=== PATIENT | female | born 1965 | race Caucasian/White ===

== ENCOUNTER 2018-12-24 10:34 | Inpatient (IN) | payer OTHER ==
[2018-12-24] MEDS: IPRATROPIUM (NEB) 0.5 MG/2.5 ML AMP HHN (10:55)
[2018-12-24] MEDS: ALBUTEROL 0.083% (NEB) 2.5 MG/3 ML AMP HHN (10:55)
[2018-12-24] MEDS ORDERED: NITROGLYCERIN (SL) 0.4 MG TAB SL (11:00)
[2018-12-24] MEDS: NITROGLYCERIN 2% 1 GM OINT PKT TD (11:19)
[2018-12-24] MEDS: FUROSEMIDE 40 MG INJ IV (11:19)
[2018-12-24 11:21] LABS: ADD MAN DIFF? NO
[2018-12-24 11:23] LABS: WHITE BLOOD COUNT 20.4 10^3/ul (4.8-10.8)
[2018-12-24 11:23] LABS: BASOPHIL # 0.1 10^3/ul (0.0-0.1); BASOPHILS % 0.4 % (0.0-2.0); EOSINOPHILS # 0.4 10^3/ul (0.0-0.5); HEMATOCRIT 31.3 % (37.0-47.0); HEMOGLOBIN 10.4 g/dl (12.0-16.0); LYMPHOCYTES # 1.7 10^3/ul (0.8-2.9); LYMPHOCYTES % 8.1 % (15.0-51.0); MEAN CORPUSCULAR HEMOGLOBIN 28.6 pg (29.0-33.0); MEAN CORPUSCULAR HGB CONC 33.2 g/dl (32.0-37.0); MEAN PLATELET VOLUME 9.4 fl (7.4-10.4); MONOCYTE # 0.7 10^3/ul (0.3-0.9); MONOCYTES % 3.4 % (0.0-11.0); NEUTROPHIL # 17.4 10^3/ul (1.6-7.5); PLATELET COUNT 344 10^3/UL (140-415); RED BLOOD COUNT 3.64 10^6/ul (4.20-5.40); RED CELL DISTRIBUTION WIDTH 13.7 % (11.5-14.5)
[2018-12-24 11:43] LABS: ANION GAP 7 (5-13); BLOOD UREA NITROGEN 46 mg/dl (7-20); CALCIUM 8.2 mg/dl (8.4-10.2); CARBON DIOXIDE 21 mmol/L (21-31); CHLORIDE 109 mmol/L (97-110); CREATININE 3.48 mg/dl (0.44-1.00); Estimated GFR 14 mL/min (>60); GLUCOSE 237 mg/dl (70-220); INR 0.91; POTASSIUM 3.4 mmol/L (3.5-5.1); PROTIME 12.4 Sec (11.9-14.9); SODIUM 137 mmol/L (135-144)
[2018-12-24 11:44] LABS: PARTIAL THROMBOPLASTIN TIME 26.1 Sec (23.0-35.0)
[2018-12-24 11:54] LABS: TROPONIN-I < 0.012 ng/ml (0.000-0.120)
[2018-12-24] MEDS: ONDANSETRON 4 MG INJ IV (12:03)
[2018-12-24] MEDS ORDERED: VANCOMYCIN IV PER PHARMACY XX (12:30)
[2018-12-24] MEDS ORDERED: ACETAMINOPHEN 325 MG TAB PO (12:30)
[2018-12-24] MEDS: CEFEPIME 2GM/50 ML (PMX) 50 ML IVPB ×2 (12:30→13:00)
[2018-12-24] MEDS ORDERED: ONDANSETRON 4 MG INJ IV ×2 (12:30→17:00)
[2018-12-24] MEDS: VANCOMYCIN 1 GM (PMX) 250 ML IVPB (13:47)
[2018-12-24 13:54] LABS: LACTIC ACID 1.4 mmol/L (0.5-2.0)
[2018-12-24] MEDS: ALBUTEROL/IPRATROPIUM (NEB) 3 ML AMP HHN ×2 (14:43→20:06)
[2018-12-24] MEDS: METHYLPREDNISOLONE 40 MG INJ IV ×2 (15:20→22:41)
[2018-12-24 16:03] LABS: LACTIC ACID 1.5 mmol/L (0.5-2.0)
[2018-12-24] MEDS ORDERED: HYDROCODONE/APAP (5/325) TAB PO (17:00)
[2018-12-24] MEDS ORDERED: NACL 0.9% 3 ML SYG IV (17:00)
[2018-12-24] MEDS: INSULIN ASPART [NOVOLOG] 3 ML PEN SC ×2 (18:58→23:08)
[2018-12-24] MEDS: INSULIN ASP PROT/ASPART (70/30) PEN SC (18:59)
[2018-12-24 20:46] LABS: AADO2 Arterial 131.3 mmHg (7.0-24.0); Allen Test ACCEPTAB; Arterial Base Excess -7.6 mmol/L (-3.0-3); Arterial Blood Gas Oxygen Sat 92.3 mmHG (95.0-98.0); Arterial COHb 0.3 % (0.0-3.0); Arterial Fraction of Oxyhgb 91.7 % (93.0-99.0); Arterial HCO3 17.6 mmol/L (22.0-26.0); Arterial MetHb 0.3 % (0.0-1.5); Arterial pCO2 34.4 mmhg (35-45); MODE NASAL CANNULA; Site Right Radial
[2018-12-24] MEDS: NIFEdipine (XL) 30 MG TAB PO (22:40)
[2018-12-24] MEDS: GABAPENTIN 100 MG CAP PO (22:40)
[2018-12-24] MEDS: HEPARIN 5,000 UNIT/1 ML VIAL SC (22:43)
[2018-12-25] MEDS: ALBUTEROL/IPRATROPIUM (NEB) 3 ML AMP HHN ×4 (01:15→19:56)
[2018-12-25] MEDS: ACCU-CHEK XX (02:00)
[2018-12-25 06:12] LABS: ADD MAN DIFF? NO
[2018-12-25] MEDS: PANTOPRAZOLE (EC) 40 MG TAB PO (06:13)
[2018-12-25] MEDS: METHYLPREDNISOLONE 40 MG INJ IV ×3 (06:13→21:34)
[2018-12-25 06:18] LABS: BASOPHILS % 0.2 % (0.0-2.0); HEMATOCRIT 27.3 % (37.0-47.0); LYMPHOCYTES # 1.3 10^3/ul (0.8-2.9); LYMPHOCYTES % 6.4 % (15.0-51.0); MEAN CORPUSCULAR HEMOGLOBIN 28.3 pg (29.0-33.0); MEAN CORPUSCULAR VOLUME 85.8 fl (82.0-101.0); MEAN PLATELET VOLUME 9.6 fl (7.4-10.4); MONOCYTE # 0.7 10^3/ul (0.3-0.9); MONOCYTES % 3.2 % (0.0-11.0); NEUTROPHIL # 18.3 10^3/ul (1.6-7.5); NEUTROPHILS % 89.2 % (39.0-77.0); PLATELET COUNT 311 10^3/UL (140-415); RED BLOOD COUNT 3.18 10^6/ul (4.20-5.40); RED CELL DISTRIBUTION WIDTH 13.4 % (11.5-14.5)
[2018-12-25 06:18] LABS: WHITE BLOOD COUNT 20.5 10^3/ul (4.8-10.8)
[2018-12-25 06:32] LABS: HEMOGLOBIN A1C 7.6 % (0-5.9)
[2018-12-25 07:07] LABS: ANION GAP 5 (5-13); BLOOD UREA NITROGEN 51 mg/dl (7-20); CALCIUM 7.9 mg/dl (8.4-10.2); CARBON DIOXIDE 21 mmol/L (21-31); CHLORIDE 109 mmol/L (97-110); CREATININE 3.53 mg/dl (0.44-1.00); Estimated GFR 13 mL/min (>60); GLUCOSE 178 mg/dl (70-220); MAGNESIUM 1.8 mg/dl (1.7-2.5); PHOSPHORUS 5.9 mg/dl (2.5-4.9); POTASSIUM 3.6 mmol/L (3.5-5.1); SODIUM 135 mmol/L (135-144)
[2018-12-25] MEDS: INSULIN ASPART [NOVOLOG] 3 ML PEN SC ×4 (07:39→21:44)
[2018-12-25] MEDS: INSULIN ASP PROT/ASPART (70/30) PEN SC ×2 (07:53→17:30)
[2018-12-25 08:08] LABS: AADO2 Arterial 140.1 mmHg (7.0-24.0); Allen Test ACCEPTAB; Arterial Base Excess -8.4 mmol/L (-3.0-3); Arterial Blood Gas Oxygen Sat 89.6 mmHG (95.0-98.0); Arterial COHb 0.3 % (0.0-3.0); Arterial Fraction of Oxyhgb 89.1 % (93.0-99.0); Arterial HCO3 16.6 mmol/L (22.0-26.0); Arterial MetHb 0.3 % (0.0-1.5); Arterial pCO2 32.2 mmhg (35-45); MODE NASAL CANNULA; Site Right Radial
[2018-12-25] MEDS: GABAPENTIN 100 MG CAP PO ×3 (08:39→21:34)
[2018-12-25] MEDS: METOPROLOL (XL) 25 MG TAB PO (08:39)
[2018-12-25] MEDS: morphine 2 MG INJ IV (08:39)
[2018-12-25] MEDS: NIFEdipine (XL) 30 MG TAB PO ×2 (08:39→21:34)
[2018-12-25] MEDS: FOLIC ACID 1 MG TAB PO (08:39)
[2018-12-25] MEDS: HEPARIN 5,000 UNIT/1 ML VIAL SC ×2 (08:52→21:40)
[2018-12-25] MEDS: CEFEPIME 2GM/50 ML (PMX) 50 ML IVPB (12:02)
[2018-12-25] MEDS: ACETAMINOPHEN 325 MG TAB PO (13:34)
[2018-12-25] MEDS: METHADONE 10 MG TAB PO (16:40)
[2018-12-25] MEDS: FUROSEMIDE 20 MG INJ IV (17:34)
[2018-12-26] MEDS: ALBUTEROL/IPRATROPIUM (NEB) 3 ML AMP HHN ×4 (01:12→19:39)
[2018-12-26] MEDS: ACCU-CHEK XX (02:00)
[2018-12-26 02:02] LABS: ADD UMIC YES; UR ASCORBIC ACID NEGATIVE (NEGATIVE); UR BILIRUBIN (Dip) NEGATIVE (NEGATIVE); UR BLOOD (Dip) 2+ mg/dL (NEGATIVE); UR BUDDING YEAST FEW /HPF (NONE SEEN); UR CLARITY CLEAR (CLEAR); UR COLOR YELLOW (YELLOW); UR GLUCOSE (Dip) 3+ mg/dL (NEGATIVE); UR KETONES (Dip) NEGATIVE (NEGATIVE); UR LEUKOCYTE ESTERASE (Dip) NEGATIVE Leu/ul (NEGATIVE); UR MUCUS FEW /HPF (NONE SEEN); UR NITRITE (Dip) NEGATIVE (NEGATIVE); UR RBC 53 /HPF (0-5); UR SPECIFIC GRAVITY (Dip) 1.011 (1.003-1.030); UR SQUAMOUS EPITHELIAL CELL FEW /HPF (FEW); UR TOTAL PROTEIN (Dip) 3+ mg/dl (NEGATIVE); UR UROBILINOGEN (Dip) NEGATIVE (NEGATIVE); UR WBC 4 /HPF (0-5)
[2018-12-26 02:40] LABS: CREATININE,URINE RANDOM 43.32 mg/dl (20-320)
[2018-12-26 02:40] LABS: SODIUM,URINE RANDOM 69 mmol/L (30-90)
[2018-12-26 03:32] LABS: PROTEIN URINE > 600.0 mg/dl (0.0-11.9)
[2018-12-26 03:57] LABS: PROTEIN, TOTAL 5.2 g/dL (6.1-8.1)
[2018-12-26] MEDS: METHYLPREDNISOLONE 40 MG INJ IV ×3 (05:42→21:42)
[2018-12-26] MEDS: FUROSEMIDE 20 MG INJ IV ×2 (05:42→17:38)
[2018-12-26 06:37] LABS: ADD MAN DIFF? NO
[2018-12-26 06:48] LABS: BASOPHILS % 0.2 % (0.0-2.0); HEMATOCRIT 27.1 % (37.0-47.0); HEMOGLOBIN 8.8 g/dl (12.0-16.0); LYMPHOCYTES # 1.3 10^3/ul (0.8-2.9); LYMPHOCYTES % 6.6 % (15.0-51.0); MEAN CORPUSCULAR HEMOGLOBIN 28.4 pg (29.0-33.0); MEAN CORPUSCULAR HGB CONC 32.5 g/dl (32.0-37.0); MEAN CORPUSCULAR VOLUME 87.4 fl (82.0-101.0); MEAN PLATELET VOLUME 9.5 fl (7.4-10.4); MONOCYTE # 0.5 10^3/ul (0.3-0.9); MONOCYTES % 2.6 % (0.0-11.0); NEUTROPHIL # 17.7 10^3/ul (1.6-7.5); NEUTROPHILS % 89.2 % (39.0-77.0); PLATELET COUNT 324 10^3/UL (140-415); RED CELL DISTRIBUTION WIDTH 13.7 % (11.5-14.5)
[2018-12-26 06:48] LABS: WHITE BLOOD COUNT 19.9 10^3/ul (4.8-10.8)
[2018-12-26 07:05] LABS: ANION GAP 6 (5-13); BLOOD UREA NITROGEN 58 mg/dl (7-20); CALCIUM 8.1 mg/dl (8.4-10.2); CARBON DIOXIDE 21 mmol/L (21-31); CHLORIDE 108 mmol/L (97-110); CREATININE 3.91 mg/dl (0.44-1.00); Estimated GFR 12 mL/min (>60); GLUCOSE 196 mg/dl (70-220); POTASSIUM 4.1 mmol/L (3.5-5.1); SODIUM 135 mmol/L (135-144)
[2018-12-26 07:06] LABS: MAGNESIUM 1.8 mg/dl (1.7-2.5)
[2018-12-26 07:06] LABS: PHOSPHORUS 6.6 mg/dl (2.5-4.9)
[2018-12-26 07:28] LABS: AADO2 Arterial 612.7 mmHg (7.0-24.0); Allen Test ACCEPTAB; Arterial Base Excess -8.3 mmol/L (-3.0-3); Arterial Blood Gas Oxygen Sat 92.7 mmHG (95.0-98.0); Arterial COHb 0.3 % (0.0-3.0); Arterial Fraction of Oxyhgb 92.1 % (93.0-99.0); Arterial HCO3 16.9 mmol/L (22.0-26.0); Arterial MetHb 0.4 % (0.0-1.5); Arterial pCO2 33.8 mmhg (35-45); MODE HFNC; Site Right Radial
[2018-12-26] MEDS: PANTOPRAZOLE (EC) 40 MG TAB PO (07:56)
[2018-12-26] MEDS: INSULIN ASPART [NOVOLOG] 3 ML PEN SC ×4 (08:11→21:00)
[2018-12-26] MEDS: INSULIN ASP PROT/ASPART (70/30) PEN SC ×2 (08:12→18:07)
[2018-12-26] MEDS: GABAPENTIN 100 MG CAP PO ×3 (08:14→21:42)
[2018-12-26] MEDS: FOLIC ACID 1 MG TAB PO (08:14)
[2018-12-26] MEDS: NIFEdipine (XL) 30 MG TAB PO ×2 (10:16→21:42)
[2018-12-26] MEDS: METOPROLOL (XL) 25 MG TAB PO (10:17)
[2018-12-26] MEDS: HEPARIN 5,000 UNIT/1 ML VIAL SC ×2 (10:18→21:51)
[2018-12-26] MEDS: METHADONE 10 MG TAB PO (10:23)
[2018-12-26] MEDS: CEFEPIME 2GM/50 ML (PMX) 50 ML IVPB (14:06)
[2018-12-26] MEDS: VANCOMYCIN 1.25 GM/NS 250 ML 250 ML IVPB (15:39)
[2018-12-26 15:57] LABS: ALPHA-1-GLOBULINS 0.6 g/dL (0.2-0.3); ALPHA-2-GLOBULINS 1.2 g/dL (0.5-0.9); BETA 2 GLOBULINS 0.4 g/dL (0.2-0.5); BETA GLOBULINS 0.4 g/dL (0.4-0.6); GAMMA GLOBULINS 1.3 g/dL (0.8-1.7)
[2018-12-27] MEDS: ALBUTEROL/IPRATROPIUM (NEB) 3 ML AMP HHN ×4 (01:37→19:47)
[2018-12-27] MEDS: morphine 2 MG INJ IV ×2 (01:55→15:49)
[2018-12-27] MEDS: ACCU-CHEK XX (02:00)
[2018-12-27] MEDS: ACETAMINOPHEN 325 MG TAB PO (04:45)
[2018-12-27] MEDS: METHYLPREDNISOLONE 40 MG INJ IV ×3 (06:28→21:07)
[2018-12-27] MEDS: FUROSEMIDE 20 MG INJ IV ×2 (06:30→17:22)
[2018-12-27 07:21] LABS: ADD MAN DIFF? NO
[2018-12-27 07:25] LABS: AADO2 Arterial 529.5 mmHg (7.0-24.0); Allen Test ACCEPTAB; Arterial Base Excess -8.2 mmol/L (-3.0-3); Arterial Blood Gas Oxygen Sat 94.1 mmHG (95.0-98.0); Arterial COHb 0.3 % (0.0-3.0); Arterial Fraction of Oxyhgb 93.6 % (93.0-99.0); Arterial HCO3 17.7 mmol/L (22.0-26.0); Arterial MetHb 0.2 % (0.0-1.5); Arterial pCO2 37.7 mmhg (35-45); MODE HFNC; Site Right Radial
[2018-12-27 07:29] LABS: WHITE BLOOD COUNT 17.3 10^3/ul (4.8-10.8)
[2018-12-27 07:29] LABS: BASOPHILS % 0.2 % (0.0-2.0); HEMATOCRIT 26.3 % (37.0-47.0); HEMOGLOBIN 8.4 g/dl (12.0-16.0); LYMPHOCYTES # 1.4 10^3/ul (0.8-2.9); MEAN CORPUSCULAR HEMOGLOBIN 27.8 pg (29.0-33.0); MEAN CORPUSCULAR HGB CONC 31.9 g/dl (32.0-37.0); MEAN CORPUSCULAR VOLUME 87.1 fl (82.0-101.0); MEAN PLATELET VOLUME 9.7 fl (7.4-10.4); MONOCYTE # 0.8 10^3/ul (0.3-0.9); MONOCYTES % 4.6 % (0.0-11.0); NEUTROPHIL # 14.8 10^3/ul (1.6-7.5); NEUTROPHILS % 85.5 % (39.0-77.0); PLATELET COUNT 334 10^3/UL (140-415); RED BLOOD COUNT 3.02 10^6/ul (4.20-5.40); RED CELL DISTRIBUTION WIDTH 13.5 % (11.5-14.5)
[2018-12-27 07:47] LABS: ANION GAP 6 (5-13); BLOOD UREA NITROGEN 69 mg/dl (7-20); CALCIUM 7.7 mg/dl (8.4-10.2); CARBON DIOXIDE 20 mmol/L (21-31); CHLORIDE 107 mmol/L (97-110); CREATININE 3.84 mg/dl (0.44-1.00); Estimated GFR 12 mL/min (>60); GLUCOSE 64 mg/dl (70-220); MAGNESIUM 1.8 mg/dl (1.7-2.5); POTASSIUM 4.2 mmol/L (3.5-5.1); SODIUM 133 mmol/L (135-144)
[2018-12-27] MEDS: INSULIN ASPART [NOVOLOG] 3 ML PEN SC ×4 (08:00→20:50)
[2018-12-27] MEDS: INSULIN ASP PROT/ASPART (70/30) PEN SC ×2 (08:00→19:03)
[2018-12-27] MEDS: PANTOPRAZOLE (EC) 40 MG TAB PO (08:40)
[2018-12-27] MEDS: METOPROLOL (XL) 25 MG TAB PO (08:41)
[2018-12-27] MEDS: GABAPENTIN 100 MG CAP PO ×3 (08:41→21:07)
[2018-12-27] MEDS: FOLIC ACID 1 MG TAB PO (08:41)
[2018-12-27] MEDS: METHADONE 10 MG TAB PO (08:42)
[2018-12-27] MEDS: NIFEdipine (XL) 30 MG TAB PO ×2 (08:42→21:07)
[2018-12-27] MEDS: HEPARIN 5,000 UNIT/1 ML VIAL SC ×2 (09:08→21:12)
[2018-12-27 09:27] LABS: HAAIG REFLEX REFLEX FILED
[2018-12-27 12:22] LABS: COMPLEMENT C3 130 mg/dl (88-165); COMPLEMENT C4 22 mg/dl (14-44)
[2018-12-27 12:47] LABS: HEPATITIS B SURFACE ANTIGEN NEGATIVE (NEGATIVE)
[2018-12-27 13:05] LABS: HEPATITIS B CORE ANTIBODY REACTIVE (NEGATIVE)
[2018-12-27 13:21] LABS: HEPATITIS C VIRAL ANTIBODY REACTIVE (NEGATIVE)
[2018-12-27] MEDS: CEFEPIME 2GM/50 ML (PMX) 50 ML IVPB (14:39)
[2018-12-27] MEDS: BUMETANIDE 12 MG in DEXTROSE 5% 72 ML IV (20:44)
[2018-12-27] MEDS: ZOLPIDEM 5 MG TAB PO (21:07)
[2018-12-27 21:59] LABS: RHEUMATOID FACTOR NEGATIVE (NEGATIVE)
[2018-12-28] MEDS: ALBUTEROL/IPRATROPIUM (NEB) 3 ML AMP HHN ×4 (01:45→20:00)
[2018-12-28] MEDS: ACCU-CHEK XX (02:00)
[2018-12-28] MEDS: morphine 2 MG INJ IV ×5 (02:47→22:22)
[2018-12-28] MEDS: FUROSEMIDE 20 MG INJ IV ×2 (06:00→17:28)
[2018-12-28] MEDS: METHYLPREDNISOLONE 40 MG INJ IV ×3 (06:26→22:22)
[2018-12-28 07:39] LABS: AADO2 Arterial 602.8 mmHg (7.0-24.0); Allen Test ACCEPTAB; Arterial Base Excess -9.6 mmol/L (-3.0-3); Arterial Blood Gas Oxygen Sat 93.3 mmHG (95.0-98.0); Arterial COHb 0.3 % (0.0-3.0); Arterial Fraction of Oxyhgb 92.9 % (93.0-99.0); Arterial HCO3 16.7 mmol/L (22.0-26.0); Arterial MetHb 0.1 % (0.0-1.5); Arterial pCO2 37.8 mmhg (35-45); MODE HFNC; Site Right Radial
[2018-12-28] MEDS: INSULIN ASPART [NOVOLOG] 3 ML PEN SC ×4 (07:51→20:14)
[2018-12-28] MEDS: INSULIN ASP PROT/ASPART (70/30) PEN SC ×2 (07:52→17:35)
[2018-12-28] MEDS: GABAPENTIN 100 MG CAP PO ×3 (08:10→22:21)
[2018-12-28] MEDS: METHADONE 10 MG TAB PO (08:11)
[2018-12-28] MEDS: NIFEdipine (XL) 30 MG TAB PO ×2 (08:11→22:22)
[2018-12-28] MEDS: METOPROLOL (XL) 25 MG TAB PO (08:11)
[2018-12-28] MEDS: PANTOPRAZOLE (EC) 40 MG TAB PO (08:11)
[2018-12-28] MEDS: FOLIC ACID 1 MG TAB PO (08:11)
[2018-12-28] MEDS: HEPARIN 5,000 UNIT/1 ML VIAL SC ×2 (09:25→22:40)
[2018-12-28 13:27] LABS: CREATININE, RANDOM URINE 46 mg/dL (20-275); MICROALBUMIN 247.6 mg/dL; MICROALBUMIN/CREATININE RATIO 5383 (<30)
[2018-12-28] MEDS: CEFEPIME 2GM/50 ML (PMX) 50 ML IVPB (14:08)
[2018-12-28 14:17] LABS: ADD MAN DIFF? NO
[2018-12-28 14:19] LABS: WHITE BLOOD COUNT 14.3 10^3/ul (4.8-10.8)
[2018-12-28 14:19] LABS: BASOPHILS % 0.3 % (0.0-2.0); EOSINOPHILS % 0.1 % (0.0-7.0); HEMATOCRIT 26.3 % (37.0-47.0); HEMOGLOBIN 8.7 g/dl (12.0-16.0); LYMPHOCYTES # 1.2 10^3/ul (0.8-2.9); LYMPHOCYTES % 8.2 % (15.0-51.0); MEAN CORPUSCULAR HEMOGLOBIN 28.4 pg (29.0-33.0); MEAN CORPUSCULAR HGB CONC 33.1 g/dl (32.0-37.0); MEAN CORPUSCULAR VOLUME 85.9 fl (82.0-101.0); MEAN PLATELET VOLUME 9.2 fl (7.4-10.4); MONOCYTE # 0.6 10^3/ul (0.3-0.9); MONOCYTES % 4.3 % (0.0-11.0); NEUTROPHIL # 11.8 10^3/ul (1.6-7.5); NEUTROPHILS % 82.1 % (39.0-77.0); PLATELET COUNT 321 10^3/UL (140-415); RED BLOOD COUNT 3.06 10^6/ul (4.20-5.40); RED CELL DISTRIBUTION WIDTH 13.4 % (11.5-14.5)
[2018-12-28 14:40] LABS: ANION GAP 10 (5-13); BLOOD UREA NITROGEN 86 mg/dl (7-20); CALCIUM 7.4 mg/dl (8.4-10.2); CARBON DIOXIDE 18 mmol/L (21-31); CHLORIDE 106 mmol/L (97-110); CREATININE 3.99 mg/dl (0.44-1.00); Estimated GFR 12 mL/min (>60); GLUCOSE 155 mg/dl (70-220); MAGNESIUM 1.8 mg/dl (1.7-2.5); PHOSPHORUS 7.3 mg/dl (2.5-4.9); POTASSIUM 4.2 mmol/L (3.5-5.1); SODIUM 134 mmol/L (135-144)
[2018-12-28 14:44] LABS: VANCOMYCIN,TROUGH 11.2 ug/ml (10.0-20.0)
[2018-12-28 15:46] LABS: MYELOPEROXIDASE ANTIBODY 5.3 AI; PROTEINASE-3 ANTIBODY <1.0 AI
[2018-12-28] MEDS: VANCOMYCIN 1.25 GM/NS 250 ML 250 ML IVPB (15:50)
[2018-12-28 16:37] LABS: CREATININE, RANDOM URINE 43 mg/dL (20-275); PROTEIN/CREATININE RATIO 18535 mg/g creat (21-161)
[2018-12-28 19:12] LABS: TROPONIN-I < 0.012 ng/ml (0.000-0.120)
[2018-12-28 19:46] LABS: ANA SCREEN POSITIVE (NEGATIVE)
[2018-12-28] MEDS ORDERED: HEPARIN 1000 UNITS/ML 10 ML INJ (21:26)
[2018-12-28] MEDS: HEPARIN 5,000 UNIT/1 ML VIAL CATHETER (21:37)
[2018-12-29] MEDS: ACCU-CHEK XX (01:01)
[2018-12-29] MEDS: ALBUTEROL/IPRATROPIUM (NEB) 3 ML AMP HHN ×4 (01:33→19:24)
[2018-12-29 01:47] LABS: TROPONIN-I < 0.012 ng/ml (0.000-0.120)
[2018-12-29] MEDS: DOCUSATE SODIUM 100 MG CAP PO ×2 (04:42→14:44)
[2018-12-29] MEDS: morphine 2 MG INJ IV ×3 (04:42→21:16)
[2018-12-29 05:17] LABS: ADD MAN DIFF? NO
[2018-12-29] MEDS: FUROSEMIDE 20 MG INJ IV ×2 (05:19→17:59)
[2018-12-29] MEDS: METHYLPREDNISOLONE 40 MG INJ IV ×2 (05:19→14:58)
[2018-12-29 05:23] LABS: BASOPHIL # 0.1 10^3/ul (0.0-0.1); BASOPHILS % 0.3 % (0.0-2.0); EOSINOPHILS % 0.1 % (0.0-7.0); HEMATOCRIT 27.1 % (37.0-47.0); LYMPHOCYTES # 1.2 10^3/ul (0.8-2.9); LYMPHOCYTES % 7.4 % (15.0-51.0); MEAN CORPUSCULAR HEMOGLOBIN 28.2 pg (29.0-33.0); MEAN CORPUSCULAR HGB CONC 33.2 g/dl (32.0-37.0); MEAN PLATELET VOLUME 9.5 fl (7.4-10.4); MONOCYTE # 0.5 10^3/ul (0.3-0.9); MONOCYTES % 3.3 % (0.0-11.0); NEUTROPHIL # 14.1 10^3/ul (1.6-7.5); NEUTROPHILS % 84.8 % (39.0-77.0); PLATELET COUNT 260 10^3/UL (140-415); RED BLOOD COUNT 3.19 10^6/ul (4.20-5.40); RED CELL DISTRIBUTION WIDTH 13.2 % (11.5-14.5)
[2018-12-29 05:23] LABS: WHITE BLOOD COUNT 16.6 10^3/ul (4.8-10.8)
[2018-12-29 05:53] LABS: CARBON DIOXIDE 21 mmol/L (21-31); CHLORIDE 106 mmol/L (97-110); POTASSIUM 4.1 mmol/L (3.5-5.1); SODIUM 134 mmol/L (135-144)
[2018-12-29 05:54] LABS: ANION GAP 7 (5-13); BLOOD UREA NITROGEN 84 mg/dl (7-20); CALCIUM 7.5 mg/dl (8.4-10.2); CREATININE 3.52 mg/dl (0.44-1.00); Estimated GFR 13 mL/min (>60); GLUCOSE 208 mg/dl (70-220); MAGNESIUM 1.8 mg/dl (1.7-2.5); PHOSPHORUS 7.2 mg/dl (2.5-4.9)
[2018-12-29 06:03] LABS: TROPONIN-I < 0.012 ng/ml (0.000-0.120)
[2018-12-29] MEDS: PANTOPRAZOLE (EC) 40 MG TAB PO (06:32)
[2018-12-29] MEDS: INSULIN ASP PROT/ASPART (70/30) PEN SC ×2 (07:35→17:53)
[2018-12-29] MEDS: METOPROLOL (XL) 25 MG TAB PO (08:20)
[2018-12-29] MEDS: FOLIC ACID 1 MG TAB PO (08:20)
[2018-12-29] MEDS: NIFEdipine (XL) 30 MG TAB PO ×2 (08:21→21:01)
[2018-12-29] MEDS: GABAPENTIN 100 MG CAP PO ×3 (08:21→21:00)
[2018-12-29] MEDS: HEPARIN 5,000 UNIT/1 ML VIAL SC ×2 (08:23→21:07)
[2018-12-29] MEDS: INSULIN ASPART [NOVOLOG] 3 ML PEN SC ×4 (08:24→20:13)
[2018-12-29 09:04] LABS: Allen Test ACCEPTAB; Arterial Base Excess -8.9 mmol/L (-3.0-3); Arterial Blood Gas Oxygen Sat 92.3 mmHG (95.0-98.0); Arterial COHb 0.3 % (0.0-3.0); Arterial Fraction of Oxyhgb 91.8 % (93.0-99.0); Arterial HCO3 16.2 mmol/L (22.0-26.0); Arterial MetHb 0.2 % (0.0-1.5); Arterial pCO2 32.2 mmhg (35-45); MODE HFNC; Site Right Radial
[2018-12-29] MEDS: METHADONE 10 MG TAB PO (09:34)
[2018-12-29] MEDS: CEFEPIME 2GM/50 ML (PMX) 50 ML IVPB (13:00)
[2018-12-29 14:21] LABS: ANCA SCREEN P-ANCA POS (NEGATIVE)
[2018-12-29] MEDS: HEPARIN 1000 UNITS/ML 10 ML INJ CATHETER (14:59)
[2018-12-29] MEDS ORDERED: GLUCOSE GEL 15 GRAM TUBE PO ×2 (15:00)
[2018-12-29] MEDS ORDERED: GLUCAGON 1 MG INJ IM (15:00)
[2018-12-29] MEDS: LACTULOSE 30ML CUP PO ×2 (15:00→21:01)
[2018-12-29] MEDS ORDERED: GLUCOSE GEL 15 GRAM TUBE BUCCAL (15:00)
[2018-12-29] MEDS ORDERED: DEXTROSE 50% 50 ML SYRINGE IV (15:00)
[2018-12-29] MEDS: NA PHOSPHATE/BIPHOS 133 ML ENEMA PR ×2 (15:34)
[2018-12-29] MEDS: METHYLPREDNISOLONE 125 MG INJ IV (21:11)
[2018-12-30] MEDS: ACCU-CHEK XX (01:00)
[2018-12-30] MEDS: LACTULOSE 30ML CUP PO ×3 (01:22→22:49)
[2018-12-30] MEDS: ALBUTEROL/IPRATROPIUM (NEB) 3 ML AMP HHN ×4 (02:27→19:29)
[2018-12-30] MEDS: morphine 2 MG INJ IV ×3 (03:05→22:59)
[2018-12-30 05:13] LABS: ADD MAN DIFF? NO
[2018-12-30] MEDS: METHYLPREDNISOLONE 125 MG INJ IV ×3 (05:28→22:49)
[2018-12-30] MEDS: PANTOPRAZOLE (EC) 40 MG TAB PO (05:29)
[2018-12-30] MEDS: FUROSEMIDE 20 MG INJ IV ×2 (05:30→18:01)
[2018-12-30 05:33] LABS: WHITE BLOOD COUNT 20.9 10^3/ul (4.8-10.8)
[2018-12-30 05:33] LABS: BASOPHIL # 0.1 10^3/ul (0.0-0.1); BASOPHILS % 0.3 % (0.0-2.0); EOSINOPHILS # 0.1 10^3/ul (0.0-0.5); EOSINOPHILS % 0.6 % (0.0-7.0); HEMATOCRIT 26.3 % (37.0-47.0); HEMOGLOBIN 8.8 g/dl (12.0-16.0); LYMPHOCYTES # 1.6 10^3/ul (0.8-2.9); LYMPHOCYTES % 7.8 % (15.0-51.0); MEAN CORPUSCULAR HEMOGLOBIN 28.2 pg (29.0-33.0); MEAN CORPUSCULAR HGB CONC 33.5 g/dl (32.0-37.0); MEAN CORPUSCULAR VOLUME 84.3 fl (82.0-101.0); MEAN PLATELET VOLUME 9.8 fl (7.4-10.4); MONOCYTE # 0.5 10^3/ul (0.3-0.9); MONOCYTES % 2.5 % (0.0-11.0); NEUTROPHIL # 17.5 10^3/ul (1.6-7.5); PLATELET COUNT 236 10^3/UL (140-415); RED BLOOD COUNT 3.12 10^6/ul (4.20-5.40); RED CELL DISTRIBUTION WIDTH 13.2 % (11.5-14.5)
[2018-12-30 06:00] LABS: ANION GAP 7 (5-13); BLOOD UREA NITROGEN 83 mg/dl (7-20); CALCIUM 7.3 mg/dl (8.4-10.2); CARBON DIOXIDE 22 mmol/L (21-31); CHLORIDE 105 mmol/L (97-110); CREATININE 3.33 mg/dl (0.44-1.00); Estimated GFR 14 mL/min (>60); GLUCOSE 145 mg/dl (70-220); MAGNESIUM 1.8 mg/dl (1.7-2.5); PHOSPHORUS 6.4 mg/dl (2.5-4.9); POTASSIUM 3.9 mmol/L (3.5-5.1); SODIUM 134 mmol/L (135-144)
[2018-12-30] MEDS: INSULIN ASPART [NOVOLOG] 3 ML PEN SC ×4 (07:35→20:44)
[2018-12-30] MEDS: GABAPENTIN 100 MG CAP PO ×3 (08:39→20:38)
[2018-12-30] MEDS: FOLIC ACID 1 MG TAB PO (08:39)
[2018-12-30 08:40] LABS: AADO2 Arterial 469.7 mmHg (7.0-24.0); Allen Test ACCEPTAB; Arterial Base Excess -6.2 mmol/L (-3.0-3); Arterial Blood Gas Oxygen Sat 92.9 mmHG (95.0-98.0); Arterial COHb 0.3 % (0.0-3.0); Arterial Fraction of Oxyhgb 92.1 % (93.0-99.0); Arterial HCO3 18.3 mmol/L (22.0-26.0); Arterial MetHb 0.6 % (0.0-1.5); Arterial pCO2 31.2 mmhg (35-45); MODE HFNC; Site Left Radial
[2018-12-30] MEDS: METHADONE 10 MG TAB PO (08:41)
[2018-12-30] MEDS: HEPARIN 5,000 UNIT/1 ML VIAL SC ×2 (08:43→20:40)
[2018-12-30] MEDS: INSULIN ASP PROT/ASPART (70/30) PEN SC ×2 (08:44→18:05)
[2018-12-30] MEDS: METOPROLOL (XL) 25 MG TAB PO (08:54)
[2018-12-30] MEDS: NIFEdipine (XL) 30 MG TAB PO ×2 (08:54→20:39)
[2018-12-30] MEDS: ALBUMIN HUMAN 25% 100 ML IV (11:49)
[2018-12-30] MEDS: CEFEPIME 2GM/50 ML (PMX) 50 ML IVPB ×2 (12:14→14:54)
[2018-12-30] MEDS: ALTEPLASE (CATHFLO) 2 MG INJ CATHETER (13:34)
[2018-12-31] MEDS: ALBUTEROL/IPRATROPIUM (NEB) 3 ML AMP HHN ×4 (01:09→19:38)
[2018-12-31] MEDS: ACCU-CHEK XX (02:01)
[2018-12-31] MEDS: ZOLPIDEM 5 MG TAB PO (02:18)
[2018-12-31 05:18] LABS: AADO2 Arterial 429.1 mmHg (7.0-24.0); Allen Test ACCEPTAB; Arterial Base Excess -4.3 mmol/L (-3.0-3); Arterial COHb 0.3 % (0.0-3.0); Arterial Fraction of Oxyhgb 96.7 % (93.0-99.0); Arterial HCO3 20.6 mmol/L (22.0-26.0); Arterial MetHb 0 % (0.0-1.5); Arterial pCO2 36.9 mmhg (35-45); MODE HFNC; Site Left Radial
[2018-12-31] MEDS: METHYLPREDNISOLONE 125 MG INJ IV ×3 (05:52→23:26)
[2018-12-31] MEDS: LACTULOSE 30ML CUP PO ×3 (05:53→21:51)
[2018-12-31] MEDS: FUROSEMIDE 20 MG INJ IV ×2 (05:54→17:54)
[2018-12-31 07:57] LABS: ADD MAN DIFF? NO
[2018-12-31 07:59] LABS: WHITE BLOOD COUNT 20.9 10^3/ul (4.8-10.8)
[2018-12-31 07:59] LABS: BASOPHILS % 0.2 % (0.0-2.0); EOSINOPHILS # 0.1 10^3/ul (0.0-0.5); EOSINOPHILS % 0.3 % (0.0-7.0); HEMATOCRIT 25.1 % (37.0-47.0); HEMOGLOBIN 8.5 g/dl (12.0-16.0); LYMPHOCYTES # 1.5 10^3/ul (0.8-2.9); LYMPHOCYTES % 7.4 % (15.0-51.0); MEAN CORPUSCULAR HEMOGLOBIN 28.5 pg (29.0-33.0); MEAN CORPUSCULAR HGB CONC 33.9 g/dl (32.0-37.0); MEAN CORPUSCULAR VOLUME 84.2 fl (82.0-101.0); MEAN PLATELET VOLUME 10.6 fl (7.4-10.4); MONOCYTE # 0.6 10^3/ul (0.3-0.9); NEUTROPHIL # 17.8 10^3/ul (1.6-7.5); NEUTROPHILS % 85.1 % (39.0-77.0); PLATELET COUNT 160 10^3/UL (140-415); RED BLOOD COUNT 2.98 10^6/ul (4.20-5.40); RED CELL DISTRIBUTION WIDTH 12.8 % (11.5-14.5)
[2018-12-31] MEDS: PANTOPRAZOLE (EC) 40 MG TAB PO (08:26)
[2018-12-31] MEDS: GABAPENTIN 100 MG CAP PO ×3 (08:27→23:25)
[2018-12-31] MEDS: FOLIC ACID 1 MG TAB PO (08:27)
[2018-12-31] MEDS: METHADONE 10 MG TAB PO (08:27)
[2018-12-31] MEDS: INSULIN ASPART [NOVOLOG] 3 ML PEN SC ×4 (08:30→23:30)
[2018-12-31] MEDS: INSULIN ASP PROT/ASPART (70/30) PEN SC ×2 (08:31→17:57)
[2018-12-31] MEDS: HEPARIN 5,000 UNIT/1 ML VIAL SC ×2 (08:32→21:00)
[2018-12-31] MEDS: NIFEdipine (XL) 30 MG TAB PO ×2 (08:36→21:00)
[2018-12-31] MEDS: METOPROLOL (XL) 25 MG TAB PO (08:36)
[2018-12-31 08:40] LABS: ANION GAP 9 (5-13); BLOOD UREA NITROGEN 72 mg/dl (7-20); CALCIUM 7.9 mg/dl (8.4-10.2); CARBON DIOXIDE 22 mmol/L (21-31); CHLORIDE 101 mmol/L (97-110); CREATININE 2.67 mg/dl (0.44-1.00); Estimated GFR 19 mL/min (>60); GLUCOSE 279 mg/dl (70-220); MAGNESIUM 1.7 mg/dl (1.7-2.5); PHOSPHORUS 5.5 mg/dl (2.5-4.9); POTASSIUM 4.2 mmol/L (3.5-5.1); SODIUM 132 mmol/L (135-144)
[2018-12-31 09:31] LABS: ANTI-DNA (DOUBLE STRANDED) <95 U/mL (< 301)
[2018-12-31 12:39] LABS: VANCOMYCIN,RANDOM 10.8 ug/ml
[2018-12-31] MEDS: CEFEPIME 1GM/50 ML IVPB (14:18)
[2018-12-31] MEDS: VANCOMYCIN 1.25 GM/NS 250 ML 250 ML IVPB (16:37)
[2018-12-31 19:06] LABS: ANA PATTERN HOMOGENEOUS
[2018-12-31] MEDS: morphine 2 MG INJ IV (23:31)
[2018-12-31] MEDS: HEPARIN 1000 UNITS/ML 10 ML INJ CATHETER (23:42)
[2019-01-01] MEDS: ALBUTEROL/IPRATROPIUM (NEB) 3 ML AMP HHN ×6 (00:35→20:06)
[2019-01-01] MEDS: ACCU-CHEK XX (02:00)
[2019-01-01] MEDS: LACTULOSE 30ML CUP PO ×3 (05:25→22:00)
[2019-01-01] MEDS: FUROSEMIDE 20 MG INJ IV ×2 (05:25→17:19)
[2019-01-01] MEDS: METHYLPREDNISOLONE 125 MG INJ IV ×3 (05:25→22:00)
[2019-01-01 05:51] LABS: ABNORMAL IP MESSAGE 1; HEMATOCRIT 27.6 % (37.0-47.0); HEMOGLOBIN 9.1 g/dl (12.0-16.0); MEAN CORPUSCULAR HEMOGLOBIN 27.9 pg (29.0-33.0); MEAN CORPUSCULAR VOLUME 84.7 fl (82.0-101.0); MEAN PLATELET VOLUME 10.3 fl (7.4-10.4); PLATELET COUNT 165 10^3/UL (140-415); RED BLOOD COUNT 3.26 10^6/ul (4.20-5.40); RED CELL DISTRIBUTION WIDTH 12.6 % (11.5-14.5)
[2019-01-01 05:51] LABS: WHITE BLOOD COUNT 26.4 10^3/ul (4.8-10.8)
[2019-01-01 05:54] LABS: ADD MAN DIFF? YES; PATH REVIEW? YES; POSITIVE DIFF @See below
[2019-01-01 06:40] LABS: ANION GAP 8 (5-13); BLOOD UREA NITROGEN 58 mg/dl (7-20); CALCIUM 7.9 mg/dl (8.4-10.2); CARBON DIOXIDE 24 mmol/L (21-31); CHLORIDE 99 mmol/L (97-110); CREATININE 2.05 mg/dl (0.44-1.00); Estimated GFR 25 mL/min (>60); GLUCOSE 257 mg/dl (70-220); MAGNESIUM 1.7 mg/dl (1.7-2.5); PHOSPHORUS 4.7 mg/dl (2.5-4.9); POTASSIUM 4.1 mmol/L (3.5-5.1); SODIUM 131 mmol/L (135-144)
[2019-01-01] MEDS: CHOLECALCIFEROL 2,000 UNIT CAP PO (08:49)
[2019-01-01] MEDS: FOLIC ACID 1 MG TAB PO (08:49)
[2019-01-01] MEDS: PANTOPRAZOLE (EC) 40 MG TAB PO (08:50)
[2019-01-01] MEDS: METOPROLOL (XL) 25 MG TAB PO (08:50)
[2019-01-01] MEDS: GABAPENTIN 100 MG CAP PO ×3 (08:50→20:41)
[2019-01-01] MEDS: NIFEdipine (XL) 30 MG TAB PO ×2 (08:50→20:41)
[2019-01-01] MEDS: METHADONE 10 MG TAB PO (08:51)
[2019-01-01] MEDS: INSULIN ASP PROT/ASPART (70/30) PEN SC ×2 (08:52→17:23)
[2019-01-01] MEDS: HEPARIN 5,000 UNIT/1 ML VIAL SC ×2 (08:52→20:43)
[2019-01-01] MEDS: INSULIN ASPART [NOVOLOG] 3 ML PEN SC ×4 (08:53→20:43)
[2019-01-01] MEDS: CEFEPIME 1GM/50 ML IVPB (12:15)
[2019-01-01 13:41] LABS: ANISOCYTOSIS 1+ (0-0); BAND NEUTROPHILS #M 1.5 10^3/ul (0.0-0.6); BAND NEUTROPHILS % (M) 6 % (0-4); BURR CELLS 1+ (0-0); LYMPHOCYTES #M 6.3 10^3/ul (0.8-2.9); LYMPHOCYTES % (M) 24 % (15-51); MICROCYTOSIS 1+ (0-0); MONOCYTE #M 1.3 10^3/ul (0.3-0.9); MONOCYTES % (M) 5 % (0-11); PLATELET ESTIMATE NORMAL; POIKILOCYTOSIS 1+ (0-0); POLYCHROMASIA 3+ (0-0); SEG NEUT #M 17.6 10^3/ul (1.6-7.5); SEGMENTED NEUTROPHILS (M) % 65 % (39-77); SMUDGE%M 2 % (0-0)
[2019-01-01] MEDS: morphine 2 MG INJ IV (15:36)
[2019-01-02] MEDS: ALBUTEROL/IPRATROPIUM (NEB) 3 ML AMP HHN ×5 (01:25→19:46)
[2019-01-02] MEDS: ACCU-CHEK XX ×3 (02:39→23:30)
[2019-01-02] MEDS: INSULIN ASPART [NOVOLOG] 3 ML PEN SC ×6 (03:11→21:22)
[2019-01-02 05:27] LABS: ADD MAN DIFF? NO
[2019-01-02 05:31] LABS: BASOPHIL # 0.1 10^3/ul (0.0-0.1); BASOPHILS % 0.3 % (0.0-2.0); EOSINOPHILS # 0.1 10^3/ul (0.0-0.5); EOSINOPHILS % 0.6 % (0.0-7.0); HEMATOCRIT 27.4 % (37.0-47.0); LYMPHOCYTES # 1.4 10^3/ul (0.8-2.9); LYMPHOCYTES % 6.5 % (15.0-51.0); MEAN CORPUSCULAR HGB CONC 32.8 g/dl (32.0-37.0); MEAN CORPUSCULAR VOLUME 85.1 fl (82.0-101.0); MEAN PLATELET VOLUME 10.4 fl (7.4-10.4); MONOCYTE # 0.5 10^3/ul (0.3-0.9); MONOCYTES % 2.2 % (0.0-11.0); NEUTROPHILS % 85.8 % (39.0-77.0); PLATELET COUNT 206 10^3/UL (140-415); RED BLOOD COUNT 3.22 10^6/ul (4.20-5.40); RED CELL DISTRIBUTION WIDTH 13.1 % (11.5-14.5)
[2019-01-02] MEDS: LACTULOSE 30ML CUP PO ×3 (06:00→21:13)
[2019-01-02] MEDS: METHYLPREDNISOLONE 125 MG INJ IV ×3 (06:09→21:18)
[2019-01-02] MEDS: PANTOPRAZOLE (EC) 40 MG TAB PO (06:09)
[2019-01-02] MEDS: morphine 2 MG INJ IV (06:17)
[2019-01-02] MEDS: FUROSEMIDE 20 MG INJ IV ×2 (06:18→18:00)
[2019-01-02 06:39] LABS: ANION GAP 11 (5-13); BLOOD UREA NITROGEN 70 mg/dl (7-20); CALCIUM 7.9 mg/dl (8.4-10.2); CARBON DIOXIDE 22 mmol/L (21-31); CHLORIDE 100 mmol/L (97-110); CREATININE 2.76 mg/dl (0.44-1.00); Estimated GFR 18 mL/min (>60); GLUCOSE 376 mg/dl (70-220); MAGNESIUM 1.6 mg/dl (1.7-2.5); PHOSPHORUS 5.9 mg/dl (2.5-4.9); POTASSIUM 4.3 mmol/L (3.5-5.1); SODIUM 133 mmol/L (135-144)
[2019-01-02] MEDS: CHOLECALCIFEROL 2,000 UNIT CAP PO (08:11)
[2019-01-02] MEDS: METHADONE 10 MG TAB PO (08:11)
[2019-01-02] MEDS: FOLIC ACID 1 MG TAB PO (08:11)
[2019-01-02] MEDS: GABAPENTIN 100 MG CAP PO ×3 (08:11→20:28)
[2019-01-02] MEDS: NIFEdipine (XL) 30 MG TAB PO ×2 (08:12→20:29)
[2019-01-02] MEDS: METOPROLOL (XL) 25 MG TAB PO (08:12)
[2019-01-02] MEDS: HEPARIN 5,000 UNIT/1 ML VIAL SC ×2 (08:14→20:32)
[2019-01-02] MEDS: INSULIN ASP PROT/ASPART (70/30) PEN SC ×2 (08:16→18:29)
[2019-01-02] MEDS: MAGNESIUM SULFATE 2 GM/50 ML 50 ML IVPB (14:18)
[2019-01-02] MEDS: ALTEPLASE (CATHFLO) 2 MG INJ CATHETER (18:57)
[2019-01-02] MEDS: DOCUSATE SODIUM 100 MG CAP PO (20:28)
[2019-01-02] MEDS: INSULIN GLARGINE [LANTus] (100 UNITS/ML) SYG SC (20:50)
[2019-01-03] MEDS: morphine 2 MG INJ IV ×2 (00:27→06:46)
[2019-01-03] MEDS: ACCU-CHEK XX (02:55)
[2019-01-03] MEDS: ALBUTEROL/IPRATROPIUM (NEB) 3 ML AMP HHN ×4 (04:26→20:00)
[2019-01-03] MEDS: LACTULOSE 30ML CUP PO ×2 (05:55→21:10)
[2019-01-03] MEDS: METHYLPREDNISOLONE 125 MG INJ IV ×3 (06:12→21:13)
[2019-01-03] MEDS: FUROSEMIDE 20 MG INJ IV ×2 (06:12→17:40)
[2019-01-03] MEDS: PANTOPRAZOLE (EC) 40 MG TAB PO (06:12)
[2019-01-03 06:31] LABS: ABNORMAL IP MESSAGE 1; HEMATOCRIT 23.8 % (37.0-47.0); HEMOGLOBIN 7.7 g/dl (12.0-16.0); MEAN CORPUSCULAR HEMOGLOBIN 27.9 pg (29.0-33.0); MEAN CORPUSCULAR HGB CONC 32.4 g/dl (32.0-37.0); MEAN CORPUSCULAR VOLUME 86.2 fl (82.0-101.0); MEAN PLATELET VOLUME 11.1 fl (7.4-10.4); PLATELET COUNT 147 10^3/UL (140-415); RED BLOOD COUNT 2.76 10^6/ul (4.20-5.40); RED CELL DISTRIBUTION WIDTH 13.3 % (11.5-14.5)
[2019-01-03 06:42] LABS: POSITIVE DIFF @See below
[2019-01-03 06:43] LABS: ADD MAN DIFF? YES
[2019-01-03 06:51] LABS: INR 0.99; PROTIME 13.2 Sec (11.9-14.9)
[2019-01-03 06:59] LABS: ANION GAP 7 (5-13); BLOOD UREA NITROGEN 75 mg/dl (7-20); CALCIUM 7.8 mg/dl (8.4-10.2); CARBON DIOXIDE 24 mmol/L (21-31); CHLORIDE 99 mmol/L (97-110); CREATININE 2.75 mg/dl (0.44-1.00); Estimated GFR 18 mL/min (>60); GLUCOSE 270 mg/dl (70-220); MAGNESIUM 2.1 mg/dl (1.7-2.5); PHOSPHORUS 5.3 mg/dl (2.5-4.9); POTASSIUM 4.4 mmol/L (3.5-5.1); SODIUM 130 mmol/L (135-144)
[2019-01-03 07:14] LABS: AADO2 Arterial 341.1 mmHg (7.0-24.0); Allen Test ACCEPTAB; Arterial Base Excess -5.1 mmol/L (-3.0-3); Arterial Blood Gas Oxygen Sat 83.9 mmHG (95.0-98.0); Arterial COHb 0.3 % (0.0-3.0); Arterial Fraction of Oxyhgb 83.4 % (93.0-99.0); Arterial HCO3 19.6 mmol/L (22.0-26.0); Arterial MetHb 0.3 % (0.0-1.5); Arterial pCO2 34.8 mmhg (35-45); MODE HFNC; Site Right Radial
[2019-01-03 07:48] LABS: BURR CELLS 1+ (0-0); LYMPHOCYTES #M 2.2 10^3/ul (0.8-2.9); LYMPHOCYTES % (M) 8 % (15-51); MYELOCYTES #M 0.5 10^3/ul (0.0-0.0); MYELOCYTES % (M) 2 % (0-0); PLATELET ESTIMATE NORMAL; SEGMENTED NEUTROPHILS (M) % 90 % (39-77); SMUDGE%M 6 % (0-0)
[2019-01-03 08:03] LABS: COLLAGEN/EPI 102 Secs. (51-198)
[2019-01-03] MEDS: INSULIN ASP PROT/ASPART (70/30) PEN SC ×2 (08:19→17:44)
[2019-01-03] MEDS: INSULIN ASPART [NOVOLOG] 3 ML PEN SC ×5 (08:20→22:30)
[2019-01-03] MEDS: HEPARIN 5,000 UNIT/1 ML VIAL SC (08:21)
[2019-01-03] MEDS: FOLIC ACID 1 MG TAB PO (08:27)
[2019-01-03] MEDS: METOPROLOL (XL) 25 MG TAB PO (08:27)
[2019-01-03] MEDS: NIFEdipine (XL) 30 MG TAB PO ×2 (08:27→21:11)
[2019-01-03] MEDS: CHOLECALCIFEROL 2,000 UNIT CAP PO (08:27)
[2019-01-03] MEDS: GABAPENTIN 100 MG CAP PO ×3 (08:27→21:11)
[2019-01-03] MEDS: METHADONE 10 MG TAB PO (08:28)
[2019-01-03] MEDS: POTASSIUM CHLORIDE (SR) 20 MEQ TAB PO (09:27)
[2019-01-03 20:43] LABS: AADO2 Arterial 615.6 mmHg (7.0-24.0); Allen Test ACCEPTAB; Arterial Base Excess -8.1 mmol/L (-3.0-3); Arterial Blood Gas Oxygen Sat 91.3 mmHG (95.0-98.0); Arterial COHb 0.3 % (0.0-3.0); Arterial Fraction of Oxyhgb 90.8 % (93.0-99.0); Arterial HCO3 17.1 mmol/L (22.0-26.0); Arterial MetHb 0.3 % (0.0-1.5); Arterial pCO2 33.6 mmhg (35-45); MODE HFNC; Site Right Radial
[2019-01-03] MEDS: FENTAnyl 50 MCG/ML VIAL IV (21:18)
[2019-01-03] MEDS: INSULIN GLARGINE [LANTus] (100 UNITS/ML) SYG SC (21:24)
[2019-01-04] MEDS: ACCU-CHEK XX ×15 (00:34→23:30)
[2019-01-04] MEDS: ALBUTEROL/IPRATROPIUM (NEB) 3 ML AMP HHN ×5 (01:19→22:16)
[2019-01-04] MEDS: FENTAnyl 50 MCG/ML VIAL IV ×3 (01:31→12:06)
[2019-01-04 04:49] LABS: ADD MAN DIFF? NO
[2019-01-04 04:51] LABS: WHITE BLOOD COUNT 33.8 10^3/ul (4.8-10.8)
[2019-01-04 04:51] LABS: ABNORMAL IP MESSAGE 1; BASOPHIL # 0.1 10^3/ul (0.0-0.1); BASOPHILS % 0.2 % (0.0-2.0); EOSINOPHILS % 0.1 % (0.0-7.0); HEMATOCRIT 24.3 % (37.0-47.0); HEMOGLOBIN 8.2 g/dl (12.0-16.0); LYMPHOCYTES # 1.8 10^3/ul (0.8-2.9); LYMPHOCYTES % 5.4 % (15.0-51.0); MEAN CORPUSCULAR HEMOGLOBIN 28.9 pg (29.0-33.0); MEAN CORPUSCULAR HGB CONC 33.7 g/dl (32.0-37.0); MEAN CORPUSCULAR VOLUME 85.6 fl (82.0-101.0); MEAN PLATELET VOLUME 10.6 fl (7.4-10.4); MONOCYTE # 1.4 10^3/ul (0.3-0.9); MONOCYTES % 4.2 % (0.0-11.0); NEUTROPHIL # 29.2 10^3/ul (1.6-7.5); NEUTROPHILS % 86.5 % (39.0-77.0); PLATELET COUNT 205 10^3/UL (140-415); RED BLOOD COUNT 2.84 10^6/ul (4.20-5.40); RED CELL DISTRIBUTION WIDTH 13.4 % (11.5-14.5)
[2019-01-04 04:54] LABS: POSITIVE DIFF @See below
[2019-01-04 05:11] LABS: ANION GAP 9 (5-13); BLOOD UREA NITROGEN 86 mg/dl (7-20); CALCIUM 8.4 mg/dl (8.4-10.2); CARBON DIOXIDE 23 mmol/L (21-31); CHLORIDE 100 mmol/L (97-110); CREATININE 3.16 mg/dl (0.44-1.00); Estimated GFR 15 mL/min (>60); GLUCOSE 217 mg/dl (70-220); PHOSPHORUS 6.1 mg/dl (2.5-4.9); POTASSIUM 5.1 mmol/L (3.5-5.1); SODIUM 132 mmol/L (135-144)
[2019-01-04] MEDS: FUROSEMIDE 20 MG INJ IV ×2 (05:42→17:35)
[2019-01-04] MEDS: METHYLPREDNISOLONE 125 MG INJ IV ×3 (05:42→21:42)
[2019-01-04] MEDS: PANTOPRAZOLE (EC) 40 MG TAB PO (05:43)
[2019-01-04] MEDS: INSULIN ASPART [NOVOLOG] 3 ML PEN SC ×2 (08:22→11:57)
[2019-01-04 08:24] LABS: AADO2 Arterial 613.4 mmHg (7.0-24.0); Allen Test ACCEPTAB; Arterial Base Excess -7.9 mmol/L (-3.0-3); Arterial Blood Gas Oxygen Sat 93.4 mmHG (95.0-98.0); Arterial COHb 0.3 % (0.0-3.0); Arterial HCO3 16.6 mmol/L (22.0-26.0); Arterial MetHb 0.1 % (0.0-1.5); Arterial pCO2 30.6 mmhg (35-45); MODE HFNC; Site Right Radial
[2019-01-04] MEDS: LACTULOSE 30ML CUP PO (08:57)
[2019-01-04] MEDS: NIFEdipine (XL) 30 MG TAB PO ×2 (08:57→20:38)
[2019-01-04] MEDS: FOLIC ACID 1 MG TAB PO (08:58)
[2019-01-04] MEDS: METOPROLOL (XL) 25 MG TAB PO (08:58)
[2019-01-04] MEDS: CHOLECALCIFEROL 2,000 UNIT CAP PO (08:58)
[2019-01-04] MEDS: GABAPENTIN 100 MG CAP PO ×3 (08:59→20:38)
[2019-01-04] MEDS: METHADONE 10 MG TAB PO (08:59)
[2019-01-04] MEDS ORDERED: DEXTROSE 50% 50 ML SYRINGE IV ×2 (12:30)
[2019-01-04] MEDS: INSULIN HUMAN REGULAR 100 UNIT in SOD CHLORIDE 0.9% 99 ML IV (13:26)
[2019-01-04] MEDS: LACTOBACILLUS RHAMNOSUS CAP PO (20:38)
[2019-01-05] MEDS: ACCU-CHEK XX ×25 (00:33→23:18)
[2019-01-05] MEDS: ALBUTEROL/IPRATROPIUM (NEB) 3 ML AMP HHN ×4 (02:00→19:29)
[2019-01-05 04:59] LABS: ADD MAN DIFF? NO
[2019-01-05 05:15] LABS: WHITE BLOOD COUNT 36.2 10^3/ul (4.8-10.8)
[2019-01-05 05:15] LABS: ABNORMAL IP MESSAGE 1; BASOPHIL # 0.1 10^3/ul (0.0-0.1); BASOPHILS % 0.2 % (0.0-2.0); EOSINOPHILS % 0.1 % (0.0-7.0); HEMATOCRIT 23.1 % (37.0-47.0); HEMOGLOBIN 7.6 g/dl (12.0-16.0); LYMPHOCYTES # 1.9 10^3/ul (0.8-2.9); LYMPHOCYTES % 5.3 % (15.0-51.0); MEAN CORPUSCULAR HEMOGLOBIN 28.3 pg (29.0-33.0); MEAN CORPUSCULAR HGB CONC 32.9 g/dl (32.0-37.0); MEAN CORPUSCULAR VOLUME 85.9 fl (82.0-101.0); MEAN PLATELET VOLUME 10.5 fl (7.4-10.4); MONOCYTE # 1.4 10^3/ul (0.3-0.9); NEUTROPHIL # 31.4 10^3/ul (1.6-7.5); NEUTROPHILS % 86.7 % (39.0-77.0); PLATELET COUNT 198 10^3/UL (140-415); RED BLOOD COUNT 2.69 10^6/ul (4.20-5.40); RED CELL DISTRIBUTION WIDTH 13.3 % (11.5-14.5)
[2019-01-05 05:33] LABS: ANION GAP 7 (5-13); BLOOD UREA NITROGEN 103 mg/dl (7-20); CARBON DIOXIDE 25 mmol/L (21-31); CHLORIDE 100 mmol/L (97-110); CREATININE 3.38 mg/dl (0.44-1.00); Estimated GFR 14 mL/min (>60); GLUCOSE 106 mg/dl (70-220); MAGNESIUM 2.1 mg/dl (1.7-2.5); PHOSPHORUS 6.4 mg/dl (2.5-4.9); POTASSIUM 5.1 mmol/L (3.5-5.1); SODIUM 132 mmol/L (135-144)
[2019-01-05 05:48] LABS: POSITIVE DIFF @See below
[2019-01-05] MEDS: FUROSEMIDE 20 MG INJ IV ×2 (06:17→17:45)
[2019-01-05] MEDS: METHYLPREDNISOLONE 125 MG INJ IV (06:19)
[2019-01-05] MEDS: PANTOPRAZOLE (EC) 40 MG TAB PO (06:21)
[2019-01-05] MEDS: FENTAnyl 50 MCG/ML VIAL IV (08:02)
[2019-01-05] MEDS: LACTULOSE 30ML CUP PO (08:44)
[2019-01-05] MEDS: NIFEdipine (XL) 30 MG TAB PO ×2 (08:45→20:53)
[2019-01-05] MEDS: FOLIC ACID 1 MG TAB PO (08:45)
[2019-01-05] MEDS: METHADONE 10 MG TAB PO (08:45)
[2019-01-05] MEDS: GABAPENTIN 100 MG CAP PO ×3 (08:45→20:53)
[2019-01-05] MEDS: LACTOBACILLUS RHAMNOSUS CAP PO ×2 (08:45→20:52)
[2019-01-05] MEDS: CHOLECALCIFEROL 2,000 UNIT CAP PO (08:46)
[2019-01-05] MEDS: METOPROLOL (XL) 25 MG TAB PO (08:46)
[2019-01-05] MEDS: HEPARIN 5,000 UNIT/1 ML VIAL SC ×2 (09:04→20:54)
[2019-01-05] MEDS: INSULIN HUMAN REGULAR 100 UNIT in SOD CHLORIDE 0.9% 99 ML IV (09:28)
[2019-01-05] MEDS: METHYLPREDNISOLONE 40 MG INJ IV ×3 (11:39→23:48)
[2019-01-05] MEDS ORDERED: ACETAMINOPHEN 325 MG TAB PO (12:00)
[2019-01-05] MEDS ORDERED: HYDROCODONE/APAP (10/325) TAB PO (18:00)
[2019-01-06] MEDS: ACCU-CHEK XX ×22 (00:40→20:30)
[2019-01-06] MEDS: ALBUTEROL/IPRATROPIUM (NEB) 3 ML AMP HHN ×4 (01:47→20:03)
[2019-01-06 04:51] LABS: ADD MAN DIFF? NO
[2019-01-06 04:59] LABS: WHITE BLOOD COUNT 46.7 10^3/ul (4.8-10.8)
[2019-01-06 04:59] LABS: ABNORMAL IP MESSAGE 1; BASOPHIL # 0.1 10^3/ul (0.0-0.1); BASOPHILS % 0.3 % (0.0-2.0); HEMATOCRIT 25.3 % (37.0-47.0); HEMOGLOBIN 8.1 g/dl (12.0-16.0); LYMPHOCYTES # 1.8 10^3/ul (0.8-2.9); LYMPHOCYTES % 3.8 % (15.0-51.0); MEAN CORPUSCULAR HEMOGLOBIN 27.6 pg (29.0-33.0); MEAN CORPUSCULAR VOLUME 86.3 fl (82.0-101.0); MEAN PLATELET VOLUME 10.3 fl (7.4-10.4); MONOCYTE # 2.4 10^3/ul (0.3-0.9); MONOCYTES % 5.1 % (0.0-11.0); NEUTROPHIL # 40.8 10^3/ul (1.6-7.5); NEUTROPHILS % 87.3 % (39.0-77.0); PLATELET COUNT 232 10^3/UL (140-415); RED BLOOD COUNT 2.93 10^6/ul (4.20-5.40); RED CELL DISTRIBUTION WIDTH 13.8 % (11.5-14.5)
[2019-01-06 05:13] LABS: POSITIVE DIFF @See below
[2019-01-06] MEDS: METHYLPREDNISOLONE 40 MG INJ IV ×4 (05:21→23:02)
[2019-01-06] MEDS: FUROSEMIDE 20 MG INJ IV ×2 (05:21→17:55)
[2019-01-06 05:49] LABS: MAGNESIUM 2.1 mg/dl (1.7-2.5)
[2019-01-06 05:57] LABS: ANION GAP 9 (5-13); BLOOD UREA NITROGEN 116 mg/dl (7-20); CARBON DIOXIDE 23 mmol/L (21-31); CHLORIDE 101 mmol/L (97-110); GLUCOSE 91 mg/dl (70-220); POTASSIUM 5.5 mmol/L (3.5-5.1); SODIUM 133 mmol/L (135-144)
[2019-01-06 06:03] LABS: Estimated GFR 12 mL/min (>60)
[2019-01-06 06:11] LABS: CREATININE 3.97 mg/dl (0.44-1.00)
[2019-01-06] MEDS: PANTOPRAZOLE (EC) 40 MG TAB PO (07:05)
[2019-01-06] MEDS: LACTULOSE 30ML CUP PO (08:14)
[2019-01-06] MEDS: NA POLYST SULFON 15 GM/60 ML BTL PO (08:15)
[2019-01-06] MEDS: NIFEdipine (XL) 30 MG TAB PO ×2 (08:15→20:51)
[2019-01-06] MEDS: GABAPENTIN 100 MG CAP PO ×3 (08:15→20:51)
[2019-01-06] MEDS: FOLIC ACID 1 MG TAB PO (08:16)
[2019-01-06] MEDS: LACTOBACILLUS RHAMNOSUS CAP PO ×2 (08:16→20:51)
[2019-01-06] MEDS: CHOLECALCIFEROL 2,000 UNIT CAP PO (08:16)
[2019-01-06] MEDS: METOPROLOL (XL) 25 MG TAB PO (08:16)
[2019-01-06] MEDS: HEPARIN 5,000 UNIT/1 ML VIAL SC ×2 (08:36→20:53)
[2019-01-06] MEDS: METHADONE 10 MG TAB PO (08:50)
[2019-01-06] MEDS: FENTAnyl 50 MCG/ML VIAL IV ×2 (12:00→21:59)
[2019-01-06] MEDS: INSULIN HUMAN REGULAR 100 UNIT in SOD CHLORIDE 0.9% 99 ML IV (16:55)
[2019-01-06] MEDS: INSULIN GLARGINE [LANTus] (100 UNITS/ML) SYG SC (21:02)
[2019-01-07] MEDS: ACCU-CHEK XX ×23 (01:45→23:00)
[2019-01-07] MEDS: ALBUTEROL/IPRATROPIUM (NEB) 3 ML AMP HHN ×4 (01:55→20:43)
[2019-01-07] MEDS ORDERED: DEXTROSE 50% 50 ML SYRINGE IV ×2 (02:00)
[2019-01-07] MEDS: INSULIN HUMAN REGULAR 100 UNIT in SOD CHLORIDE 0.9% 99 ML IV (02:33)
[2019-01-07 06:02] LABS: ABNORMAL IP MESSAGE 1; HEMATOCRIT 23.7 % (37.0-47.0); HEMOGLOBIN 7.7 g/dl (12.0-16.0); MEAN CORPUSCULAR HEMOGLOBIN 28.5 pg (29.0-33.0); MEAN CORPUSCULAR HGB CONC 32.5 g/dl (32.0-37.0); MEAN CORPUSCULAR VOLUME 87.8 fl (82.0-101.0); MEAN PLATELET VOLUME 10.7 fl (7.4-10.4); PLATELET COUNT 145 10^3/UL (140-415); RED CELL DISTRIBUTION WIDTH 13.9 % (11.5-14.5)
[2019-01-07 06:12] LABS: ALANINE AMINOTRANSFERASE 48 IU/L (13-69); ALBUMIN 2.2 g/dl (3.3-4.9); ALBUMIN/GLOBULIN RATIO 0.73; ALKALINE PHOSPHATASE 180 IU/L (42-121); ANION GAP 10 (5-13); ASPARTATE AMINO TRANSFERASE 34 IU/L (15-46); BILIRUBIN,INDIRECT 0.1 mg/dl (0-1.1); BILIRUBIN,TOTAL 0.1 mg/dl (0.2-1.3); CALCIUM 7.6 mg/dl (8.4-10.2); CARBON DIOXIDE 21 mmol/L (21-31); CHLORIDE 102 mmol/L (97-110); GLUCOSE 271 mg/dl (70-220); POTASSIUM 5.3 mmol/L (3.5-5.1); SODIUM 133 mmol/L (135-144); TOTAL PROTEIN 5.2 g/dl (6.1-8.1)
[2019-01-07 06:20] LABS: Estimated GFR 12 mL/min (>60)
[2019-01-07] MEDS: PANTOPRAZOLE (EC) 40 MG TAB PO (06:20)
[2019-01-07] MEDS: METHYLPREDNISOLONE 40 MG INJ IV ×3 (06:20→18:31)
[2019-01-07] MEDS: FUROSEMIDE 20 MG INJ IV ×2 (06:21→18:00)
[2019-01-07 06:24] LABS: BLOOD UREA NITROGEN 138 mg/dl (7-20)
[2019-01-07 06:25] LABS: ADD MAN DIFF? YES; CREATININE 3.87 mg/dl (0.44-1.00); POSITIVE DIFF @See below
[2019-01-07] MEDS ORDERED: INSULIN ASPART [NOVOLOG] 3 ML PEN SC (07:35)
[2019-01-07] MEDS: LACTOBACILLUS RHAMNOSUS CAP PO ×2 (08:19→21:00)
[2019-01-07] MEDS: GABAPENTIN 100 MG CAP PO ×3 (08:19→21:00)
[2019-01-07] MEDS: LACTULOSE 30ML CUP PO ×3 (08:19→08:38)
[2019-01-07] MEDS: METHADONE 10 MG TAB PO (08:19)
[2019-01-07] MEDS: CHOLECALCIFEROL 2,000 UNIT CAP PO (08:20)
[2019-01-07] MEDS: FOLIC ACID 1 MG TAB PO (08:20)
[2019-01-07] MEDS: HEPARIN 5,000 UNIT/1 ML VIAL SC ×2 (08:22→21:19)
[2019-01-07 08:23] LABS: AADO2 Arterial 610.8 mmHg (7.0-24.0); Allen Test ACCEPTAB; Arterial Blood Gas Oxygen Sat 87.9 mmHG (95.0-98.0); Arterial COHb 0.3 % (0.0-3.0); Arterial Fraction of Oxyhgb 87.3 % (93.0-99.0); Arterial HCO3 19.6 mmol/L (22.0-26.0); Arterial MetHb 0.4 % (0.0-1.5); Arterial pCO2 44.3 mmhg (35-45); MODE VAPOTHERM; Site Right Radial
[2019-01-07] MEDS: NIFEdipine (XL) 30 MG TAB PO ×2 (09:00→21:00)
[2019-01-07] MEDS: METOPROLOL (XL) 25 MG TAB PO (09:00)
[2019-01-07 09:27] LABS: ANISOCYTOSIS 1+ (0-0); BAND NEUTROPHILS #M 0.7 10^3/ul (0.0-0.6); BAND NEUTROPHILS % (M) 2 % (0-4); LYMPHOCYTES #M 0.3 10^3/ul (0.8-2.9); LYMPHOCYTES % (M) 1 % (15-51); MICROCYTOSIS 1+ (0-0); PLATELET ESTIMATE NORMAL; SEG NEUT #M 38.1 10^3/ul (1.6-7.5); SEGMENTED NEUTROPHILS (M) % 97 % (39-77); SMUDGE%M 2 % (0-0)
[2019-01-07] MEDS ORDERED: VANCOMYCIN IV PER PHARMACY XX (10:00)
[2019-01-07] MEDS: CEFEPIME 1GM/50 ML (PMX) 50 ML IVPB (11:38)
[2019-01-07] MEDS: VANCOMYCIN HCL 1.75 GM in SOD CHLORIDE 0.9% 500 ML IVPB (12:32)
[2019-01-07] MEDS: LORAZEPAM 2 MG INJ IV (14:54)
[2019-01-07] MEDS: HEPARIN 1000 UNITS/ML 10 ML INJ CATHETER (17:57)
[2019-01-07] MEDS: DEXTROSE 50% 50 ML SYRINGE IV (20:21)
[2019-01-08] MEDS: METHYLPREDNISOLONE 40 MG INJ IV ×5 (00:09→23:52)
[2019-01-08] MEDS: ACCU-CHEK XX ×26 (01:00→23:51)
[2019-01-08 01:47] LABS: AADO2 Arterial 568.8 mmHg (7.0-24.0); Allen Test ACCEPTAB; Arterial Base Excess -7.4 mmol/L (-3.0-3); Arterial Blood Gas Oxygen Sat 95.7 mmHG (95.0-98.0); Arterial COHb 0.3 % (0.0-3.0); Arterial Fraction of Oxyhgb 95.2 % (93.0-99.0); Arterial MetHb 0.2 % (0.0-1.5); Arterial pCO2 49.9 mmhg (35-45); Blood Gas IEPAP 15/5; Blood Gas PS 10; MODE MASK - BIPAP; Site Right Radial
[2019-01-08] MEDS: ALBUTEROL/IPRATROPIUM (NEB) 3 ML AMP HHN ×4 (02:29→19:21)
[2019-01-08 06:16] LABS: AMMONIA 18 umol/l (9-30)
[2019-01-08 06:19] LABS: ANION GAP 12 (5-13); BLOOD UREA NITROGEN 118 mg/dl (7-20); CALCIUM 7.8 mg/dl (8.4-10.2); CARBON DIOXIDE 22 mmol/L (21-31); CHLORIDE 101 mmol/L (97-110); GLUCOSE 146 mg/dl (70-220); PHOSPHORUS 9.7 mg/dl (2.5-4.9); POTASSIUM 5.9 mmol/L (3.5-5.1); SODIUM 135 mmol/L (135-144)
[2019-01-08 06:25] LABS: Estimated GFR 12 mL/min (>60)
[2019-01-08 06:28] LABS: CREATININE 3.76 mg/dl (0.44-1.00)
[2019-01-08] MEDS: FUROSEMIDE 20 MG INJ IV ×2 (06:30→18:54)
[2019-01-08] MEDS: PANTOPRAZOLE (EC) 40 MG TAB PO (06:31)
[2019-01-08 07:09] LABS: ABNORMAL IP MESSAGE 1; HEMATOCRIT 22.4 % (37.0-47.0); HEMOGLOBIN 7.3 g/dl (12.0-16.0); MEAN CORPUSCULAR HEMOGLOBIN 28.9 pg (29.0-33.0); MEAN CORPUSCULAR HGB CONC 32.6 g/dl (32.0-37.0); MEAN CORPUSCULAR VOLUME 88.5 fl (82.0-101.0); MEAN PLATELET VOLUME 10.2 fl (7.4-10.4); RED BLOOD COUNT 2.53 10^6/ul (4.20-5.40); RED CELL DISTRIBUTION WIDTH 14.5 % (11.5-14.5)
[2019-01-08 07:24] LABS: POSITIVE DIFF @See below
[2019-01-08 07:27] LABS: ADD MAN DIFF? YES
[2019-01-08 07:40] LABS: AADO2 Arterial 569.1 mmHg (7.0-24.0); Allen Test ACCEPTAB; Arterial Base Excess -7.5 mmol/L (-3.0-3); Arterial Blood Gas Oxygen Sat 95.8 mmHG (95.0-98.0); Arterial COHb 0 % (0.0-3.0); Arterial Fraction of Oxyhgb 95.4 % (93.0-99.0); Arterial HCO3 19.7 mmol/L (22.0-26.0); Arterial MetHb 0.4 % (0.0-1.5); Arterial pCO2 48.3 mmhg (35-45); Blood Gas IEPAP 15/5; Blood Gas PS 10; MODE MASK - BIPAP; Site Right Radial
[2019-01-08] MEDS: FOLIC ACID 1 MG TAB PO (09:00)
[2019-01-08] MEDS: LACTULOSE 30ML CUP PO (09:00)
[2019-01-08] MEDS: GABAPENTIN 100 MG CAP PO ×3 (09:00→21:00)
[2019-01-08] MEDS: METHADONE 10 MG TAB PO (09:00)
[2019-01-08] MEDS: NIFEdipine (XL) 30 MG TAB PO ×2 (09:00→21:00)
[2019-01-08] MEDS: CHOLECALCIFEROL 2,000 UNIT CAP PO (09:00)
[2019-01-08] MEDS: HEPARIN 5,000 UNIT/1 ML VIAL SC (09:00)
[2019-01-08] MEDS: METOPROLOL (XL) 25 MG TAB PO (09:00)
[2019-01-08] MEDS: LACTOBACILLUS RHAMNOSUS CAP PO ×2 (09:00→21:00)
[2019-01-08 09:28] LABS: PLATELET COUNT 51 10^3/UL (140-415)
[2019-01-08 09:32] LABS: ANISOCYTOSIS 1+ (0-0); BAND NEUTROPHILS #M 2.6 10^3/ul (0.0-0.6); BAND NEUTROPHILS % (M) 6 % (0-4); LYMPHOCYTES #M 0.4 10^3/ul (0.8-2.9); LYMPHOCYTES % (M) 1 % (15-51); MICROCYTOSIS 1+ (0-0); MONOCYTE #M 0.4 10^3/ul (0.3-0.9); MONOCYTES % (M) 1 % (0-11); PLATELET ESTIMATE DECREASED; POLYCHROMASIA 2+ (0-0); SEG NEUT #M 41.6 10^3/ul (1.6-7.5); SEGMENTED NEUTROPHILS (M) % 92 % (39-77); SMUDGE%M 4 % (0-0)
[2019-01-08] MEDS: CEFEPIME 1GM/50 ML (PMX) 50 ML IVPB (10:38)
[2019-01-08] MEDS: morphine 2 MG INJ IV (16:31)
[2019-01-08] MEDS: HEPARIN 1000 UNITS/ML 10 ML INJ CATHETER (17:11)
[2019-01-08] MEDS: ACETAMINOPHEN 1000MG/100ML IV 100 ML IVPB (21:28)
[2019-01-08] MEDS: BISACODYL 10 MG SUPP PR (23:10)
[2019-01-08] MEDS: FENTAnyl 50 MCG/ML VIAL IV (23:57)
[2019-01-09] MEDS: ACCU-CHEK XX ×23 (01:00→21:20)
[2019-01-09] MEDS: ALBUTEROL/IPRATROPIUM (NEB) 3 ML AMP HHN ×4 (02:14→19:30)
[2019-01-09] MEDS: INSULIN HUMAN REGULAR 100 UNIT in SOD CHLORIDE 0.9% 99 ML IV (03:49)
[2019-01-09 05:14] LABS: ADD MAN DIFF? NO
[2019-01-09 05:15] LABS: ABNORMAL IP MESSAGE 1; BASOPHIL # 0.1 10^3/ul (0.0-0.1); BASOPHILS % 0.2 % (0.0-2.0); HEMATOCRIT 22.1 % (37.0-47.0); LYMPHOCYTES # 0.7 10^3/ul (0.8-2.9); LYMPHOCYTES % 2.2 % (15.0-51.0); MEAN CORPUSCULAR HEMOGLOBIN 27.9 pg (29.0-33.0); MEAN CORPUSCULAR HGB CONC 31.7 g/dl (32.0-37.0); MEAN PLATELET VOLUME 11.5 fl (7.4-10.4); MONOCYTE # 0.5 10^3/ul (0.3-0.9); MONOCYTES % 1.5 % (0.0-11.0); NEUTROPHIL # 28.3 10^3/ul (1.6-7.5); NEUTROPHILS % 91.9 % (39.0-77.0); RED BLOOD COUNT 2.51 10^6/ul (4.20-5.40); RED CELL DISTRIBUTION WIDTH 14.8 % (11.5-14.5)
[2019-01-09 05:18] LABS: PLATELET COUNT 35 10^3/UL (140-415); POSITIVE DIFF @See below
[2019-01-09 05:19] LABS: WHITE BLOOD COUNT 30.8 10^3/ul (4.8-10.8)
[2019-01-09 05:44] LABS: VANCOMYCIN,RANDOM 14.3 ug/ml
[2019-01-09 05:44] LABS: ANION GAP 7 (5-13); BLOOD UREA NITROGEN 98 mg/dl (7-20); CALCIUM 7.7 mg/dl (8.4-10.2); CARBON DIOXIDE 24 mmol/L (21-31); CHLORIDE 105 mmol/L (97-110); CREATININE 3.26 mg/dl (0.44-1.00); Estimated GFR 15 mL/min (>60); GLUCOSE 120 mg/dl (70-220); PHOSPHORUS 8.6 mg/dl (2.5-4.9); POTASSIUM 5.7 mmol/L (3.5-5.1); SODIUM 136 mmol/L (135-144)
[2019-01-09] MEDS: FUROSEMIDE 20 MG INJ IV ×2 (06:05→19:15)
[2019-01-09] MEDS: FENTAnyl 50 MCG/ML VIAL IV ×5 (06:06→23:04)
[2019-01-09] MEDS: METHYLPREDNISOLONE 40 MG INJ IV ×3 (06:06→19:20)
[2019-01-09] MEDS: PANTOPRAZOLE (EC) 40 MG TAB PO (06:06)
[2019-01-09] MEDS: FOLIC ACID 1 MG TAB PO (09:00)
[2019-01-09] MEDS: LACTULOSE 30ML CUP PO (09:00)
[2019-01-09] MEDS: METHADONE 10 MG TAB PO (09:00)
[2019-01-09] MEDS: GABAPENTIN 100 MG CAP PO ×3 (09:00→20:53)
[2019-01-09] MEDS: NIFEdipine (XL) 30 MG TAB PO ×2 (09:00→20:54)
[2019-01-09] MEDS: METOPROLOL (XL) 25 MG TAB PO (09:00)
[2019-01-09] MEDS: LACTOBACILLUS RHAMNOSUS CAP PO ×2 (09:00→20:53)
[2019-01-09] MEDS: CHOLECALCIFEROL 2,000 UNIT CAP PO (09:00)
[2019-01-09] MEDS: CEFEPIME 1GM/50 ML (PMX) 50 ML IVPB (10:10)
[2019-01-09] MEDS: DILTIAZEM 25 MG INJ IV (12:30)
[2019-01-09] MEDS: HEPARIN 1000 UNITS/ML 10 ML INJ CATHETER (12:44)
[2019-01-09] MEDS: NA POLYST SULFON 15 GM/60 ML BTL PO (14:00)
[2019-01-09] MEDS: VANCOMYCIN 1.25 GM/NS 250 ML 250 ML IVPB (14:32)
[2019-01-09 16:20] LABS: ANION GAP 8 (5-13); BLOOD UREA NITROGEN 97 mg/dl (7-20); CALCIUM 7.8 mg/dl (8.4-10.2); CARBON DIOXIDE 21 mmol/L (21-31); CHLORIDE 107 mmol/L (97-110); CREATININE 3.11 mg/dl (0.44-1.00); Estimated GFR 16 mL/min (>60); GLUCOSE 85 mg/dl (70-220); POTASSIUM 5.1 mmol/L (3.5-5.1); SODIUM 136 mmol/L (135-144)
[2019-01-09] MEDS: LORAZEPAM 2 MG INJ IV (19:45)
[2019-01-09] MEDS: INSULIN ASPART [NOVOLOG] 3 ML PEN SC (21:00)
[2019-01-09] MEDS: INSULIN GLARGINE [LANTus] (100 UNITS/ML) SYG SC (21:06)
[2019-01-09] MEDS: hydrALAzine 20 MG INJ IV (22:28)
[2019-01-10] MEDS ORDERED: ACCU-CHEK XX
[2019-01-10] MEDS: METHYLPREDNISOLONE 40 MG INJ IV ×3 (00:16→12:53)
[2019-01-10] MEDS: INSULIN ASPART [NOVOLOG] 3 ML PEN SC ×4 (00:28→13:11)
[2019-01-10] MEDS: ACCU-CHEK XX ×4 (01:00→09:00)
[2019-01-10] MEDS: ALBUTEROL/IPRATROPIUM (NEB) 3 ML AMP HHN ×3 (01:07→14:50)
[2019-01-10] MEDS: hydrALAzine 20 MG INJ IV (04:13)
[2019-01-10 05:14] LABS: ADD MAN DIFF? NO
[2019-01-10 05:21] LABS: ABNORMAL IP MESSAGE 1; BASOPHIL # 0.1 10^3/ul (0.0-0.1); BASOPHILS % 0.2 % (0.0-2.0); HEMATOCRIT 23.4 % (37.0-47.0); HEMOGLOBIN 7.6 g/dl (12.0-16.0); LYMPHOCYTES # 0.9 10^3/ul (0.8-2.9); LYMPHOCYTES % 2.9 % (15.0-51.0); MEAN CORPUSCULAR HEMOGLOBIN 28.6 pg (29.0-33.0); MEAN CORPUSCULAR HGB CONC 32.5 g/dl (32.0-37.0); MEAN PLATELET VOLUME 10.8 fl (7.4-10.4); MONOCYTE # 0.8 10^3/ul (0.3-0.9); MONOCYTES % 2.7 % (0.0-11.0); NEUTROPHIL # 28.5 10^3/ul (1.6-7.5); NEUTROPHILS % 91.5 % (39.0-77.0); PLATELET COUNT 31 10^3/UL (140-415); RED BLOOD COUNT 2.66 10^6/ul (4.20-5.40); RED CELL DISTRIBUTION WIDTH 14.5 % (11.5-14.5)
[2019-01-10 05:21] LABS: WHITE BLOOD COUNT 31.1 10^3/ul (4.8-10.8)
[2019-01-10] MEDS: FUROSEMIDE 20 MG INJ IV (05:27)
[2019-01-10 05:32] LABS: POSITIVE DIFF @See below
[2019-01-10] MEDS: FENTAnyl 50 MCG/ML VIAL IV ×3 (05:33→12:47)
[2019-01-10 05:49] LABS: ANION GAP 10 (5-13); BLOOD UREA NITROGEN 105 mg/dl (7-20); CALCIUM 7.8 mg/dl (8.4-10.2); CARBON DIOXIDE 21 mmol/L (21-31); CHLORIDE 108 mmol/L (97-110); CREATININE 3.27 mg/dl (0.44-1.00); Estimated GFR 15 mL/min (>60); GLUCOSE 138 mg/dl (70-220); MAGNESIUM 1.9 mg/dl (1.7-2.5); PHOSPHORUS 8.7 mg/dl (2.5-4.9); SODIUM 139 mmol/L (135-144)
[2019-01-10] MEDS: PANTOPRAZOLE (EC) 40 MG TAB PO (06:37)
[2019-01-10] MEDS: DILTIAZEM 25 MG INJ IV (06:44)
[2019-01-10] MEDS: LACTOBACILLUS RHAMNOSUS CAP PO (08:21)
[2019-01-10] MEDS: FOLIC ACID 1 MG TAB PO (08:21)
[2019-01-10] MEDS: LACTULOSE 30ML CUP PO (08:21)
[2019-01-10] MEDS: NIFEdipine (XL) 30 MG TAB PO (08:22)
[2019-01-10] MEDS: METHADONE 10 MG TAB PO (08:22)
[2019-01-10] MEDS: CHOLECALCIFEROL 2,000 UNIT CAP PO (08:22)
[2019-01-10] MEDS: GABAPENTIN 100 MG CAP PO ×2 (08:22→10:06)
[2019-01-10] MEDS: METOPROLOL (XL) 25 MG TAB PO (08:22)
[2019-01-10] MEDS: LORAZEPAM 2 MG INJ IV ×2 (08:47→20:02)
[2019-01-10] MEDS: CEFEPIME 1GM/50 ML (PMX) 50 ML IVPB (12:54)
[2019-01-10] MEDS ORDERED: ATROPINE SULFATE 1% 5ML SL (16:30)
[2019-01-10] MEDS: HYDROmorphONE 2 MG/ML SYG IV (16:53)
[2019-01-10] MEDS: morphine (DRIP) 100 MG/100 ML 100 ML IV (17:17)
[2019-01-11] MEDS: morphine (DRIP) 100 MG/100 ML 100 ML IV ×2 (03:01→12:35)
== END 2019-01-11 18:11 | disposition expired | DRG 193 ==
LOC: ICU 12-28 14:38 → E/R 10:34 → 6WM 12:11
PROC: 06HY33Z Insertion of Infusion Device into Lower Vein, Percutaneous Approach (ICD-10-PCS; principal; 2018-12-28)
PROC: 5A1D70Z Performance of Urinary Filtration, Intermittent, Less than 6 Hours Per Day (ICD-10-PCS; 2018-12-28)
DX: J18.9 Pneumonia, unspecified organism (principal); J96.21 Acute and chronic respiratory failure with hypoxia; N17.0 Acute kidney failure with tubular necrosis; E87.2 Acidosis; I13.0 Hypertensive heart and chronic kidney disease with heart failure and stage 1 through stage 4 chronic kidney disease, or unspecified chronic kidney disease; I50.32 Chronic diastolic (congestive) heart failure; J44.0 Chronic obstructive pulmonary disease with (acute) lower respiratory infection; I27.20 Pulmonary hypertension, unspecified; J84.10 Pulmonary fibrosis, unspecified; B19.20 Unspecified viral hepatitis C without hepatic coma; D63.1 Anemia in chronic kidney disease; E11.22 Type 2 diabetes mellitus with diabetic chronic kidney disease; E66.01 Morbid (severe) obesity due to excess calories; E87.70 Fluid overload, unspecified; F11.10 Opioid abuse, uncomplicated; G89.4 Chronic pain syndrome; K72.90 Hepatic failure, unspecified without coma; K70.30 Alcoholic cirrhosis of liver without ascites; K59.09 Other constipation; N18.9 Chronic kidney disease, unspecified; R14.0 Abdominal distension (gaseous); Z66 Do not resuscitate; Z51.5 Encounter for palliative care; Z87.891 Personal history of nicotine dependence; Z68.37 Body mass index [BMI] 37.0-37.9, adult; Z99.81 Dependence on supplemental oxygen; Z79.4 Long term (current) use of insulin
CPT/HCPCS: 36415; 36573; 36600; 71045; 71250; 76705; 76775; 80048; 80053; 80202; 81001; 81003; 82043; 82140; 82306; 82570; 82595; 82652; 82803; 82962; 83036; 83605; 83735; 83970; 84100; 84155; 84156; 84165; 84166; 84300; 84443; 84484; 85025; 85576; 85610; 85730; 86021; 86038; 86160; 86226; 86320; 86325; 86430; 86704; 86709; 86803; 87040-91; 87081; 87340; 90935; 92610; 93005; 93306; 93970; 94640; 94660; 94664; 96374; 96375; 97163; 99285-25